=== PATIENT | female | born 2005 | race Caucasian/White ===

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

== ENCOUNTER 2023-06-11 12:32 | Emergency (ER) | payer OTHER, SELFPAY ==
[2023-06-11 12:44] VITALS: BP 129/80; PULSE 111; RESP 16; TEMP 37.3; O2SAT 98
--- NOTE | 2023-06-11 13:45 | ED.ABDPAIN ---
HPI - Abdominal Pain General Chief Complaint: Abdominal Pain Stated Complaint: Abdominal Pain Source: patient Mode of arrival: ambulatory Limitations: no limitations History of Present Illness HPI narrative: PATIENT PRESENTS FOR EVALUATION OF PELVIC PAIN FOR LAST 2 WEEKS, WORSE THE LAST FEW DAYS. PAIN IS INTERMITTENT, STABBING, OCCURRING SEVERAL TIMES DAILY IN LASTING MINUTES, IN THE SUPRAPUBIC REGION, AND DESCRIBED ?SEVERE?. NO NUMERICAL RATING THE PAIN. NO FEVER, CHILLS, NAUSEA, VOMITING, URINARY SYMPTOMS, VAGINAL BLEEDING OR DISCHARGE. STATES SHE MISSED A PERIOD WITH LAST MENSTRUAL PERIOD ENDING JUST OVER A MONTH AGO. SHE IS INTERMITTENTLY ADHERENT TO ORAL CONTRACEPTION. SHE IS SEXUALLY ACTIVE WITH 1 MALE PARTNER, SOMETIMES USING CONDOMS. HE IS NOT EXPERIENCING ANY SYMPTOMS. NO CHANGE IN HER BOWEL PATTERN. SHE IS NOT TAKING ANY MEDICATION FOR HER SYMPTOMS. Related Data Home Medications Medication Instructions Recorded Confirmed No Home Medications 07/11/22 07/11/22 Allergies Allergy/AdvReac Type Severity Reaction Status Date / Time No Known Allergies Allergy Verified 06/11/23 12:49 Review of Systems Review of Systems: CONSTITUTIONAL: DENIES FEVER, CHILLS, OR SWEATS. EYES: DENIES VISUAL CHANGES, REDNESS, OR DISCHARGE. ENT: DENIES RHINORRHEA, CONGESTION, SORE THROAT, OR OTALGIA. CARDIOVASCULAR: DENIES CHEST PAIN, PALPITATIONS, OR EDEMA. RESPIRATORY: DENIES COUGH OR DYSPNEA. GASTROINTESTINAL: REPORTS PELVIC PAIN. DENIES NAUSEA, VOMITING, OR DIARRHEA. GENITOURINARY: DENIES DYSURIA OR HEMATURIA. DENIES VAGINAL BLEEDING AND DISCHARGE. SKIN: DENIES RASH OR ITCHING. MUSCULOSKELETAL: DENIES BACK PAIN, JOINT PAIN, OR MYALGIA. NEUROLOGIC: DENIES HEADACHE, NUMBNESS, DIZZINESS, OR WEAKNESS. PSYCHIATRIC: DENIES ANXIETY OR DEPRESSION. [facility] Past Medical History Medical History ADD (attention deficit disorder) Surgical History Surgical History History of tonsillectomy Family History Family History Mother Family history non-contributory Social History Social History Smoking status: Current every day smoker Tobacco type: e-cigarettes/vaping Substance use: current Substance use type: marijuana Gender identity (if verbalized by the patient): Female Sexual Orientation (if Verbalized by the Patient): Straight or Heterosexual Spiritual care concerns: No Exam Narrative: GENERAL: WELL-APPEARING, WELL-NOURISHED, AND IN NO ACUTE DISTRESS. HEAD: NORMOCEPHALIC, ATRAUMATIC. EYES: PERRLA AND EOMI. ENT: NARES CLEAR, NO RHINORRHEA OR EPISTAXIS. MUCOUS MEMBRANES MOIST. OROPHARYNX WITHOUT TONSILLAR HYPERTROPHY EXUDATE OR OTHER LESIONS. BILATERAL TMS PEARLY PALM NONBULGING NECK: SUPPLE. NO ADENOPATHY OR MASSES. NO CAROTID BRUITS OR JVD CHEST: CLEAR TO AUSCULTATION. NO RESPIRATORY DISTRESS. NO WHEEZES RALES OR RHONCHI HEART: REGULAR RATE AND RHYTHM. NO MURMUR HEARD. NORMAL PERIPHERAL PULSES. ABDOMEN: SOFT, NONDISTENDED, NORMAL ACTIVE BOWEL SOUNDS. TENDERNESS IN THE SUPRAPUBIC REGION WITHOUT REBOUND OR GUARDING. EXTREMITIES: NORMAL RANGE OF MOTION. NO EDEMA. SKIN: WARM, DRY, NO RASH. NEURO: NO FOCAL DEFICITS. ALERT AND ORIENTED X3. PSYCH: NORMAL MOOD AND AFFECT. Course Course Emergency Course: THIS IS A 17-YEAR-OLD FEMALE WHO PRESENTED FOR EVALUATION OF PELVIC PAIN. URINALYSIS WITHOUT EVIDENCE OF INFECTION. TEST NEGATIVE. LIKELY WOULD BENEFIT FROM ULTRASOUND. CONTACTED [facility] AND SPOKE WITH CHARGE NURSE, JOSE, WHO INDICATES THAT DR. PUENTE WILL ACCEPT PT TO DEPARTMENT THERE. PT WAS UPDATED THROUGHOUT HER STAY AND WAS IN AGREEMENT WITH PLAN OF CARE INCLUDING PLANS FOR TRANSFER. SHE REQUESTED TO GO TO [facility]
== END 2023-06-11 13:35 | disposition short-term general hospital (02) ==
PROVIDERS: Emergency Provider Nurse Practitioner
DX: R10.2 Pelvic and perineal pain (principal); F17.290 Nicotine dependence, other tobacco product, uncomplicated
CPT/HCPCS: 81003; 81025; 99212; G0463

== ENCOUNTER 2023-09-06 08:50 | Emergency (ER) | payer OTHER, SELFPAY ==
[2023-09-06 08:57] VITALS: BP 133/81; PULSE 127; RESP 20; TEMP 37.4; O2SAT 99
--- NOTE | 2023-09-06 09:54 | ED.URI ---
HPI - URI/Sore Throat General Chief Complaint: Upper Respiratory Infection Stated Complaint: fever/congestion/throat/cough/aches Time Seen by Provider: 09/06/23 09:54 Source: patient, RN notes reviewed and old records reviewed Mode of arrival: ambulatory Limitations: no limitations History of Present Illness HPI Narrative: 17 year old female who presents to [facility] with complaints of fever, cough, headache, body aches, and head congestion since yesterday. Patient reports that she was sent home from work yesterday due to her symptoms. Patient reports fevers chills unsure how high temperature. She states that she has been taking DayQuil and Lashaun [place] cold and flu medication. MD elicited complaint: fever, sore throat and other (ear pain,body aches, headache) Pertinent past history: other (strep and ear infections) Onset (ago): day(s) (day 2 of symptoms) Severity: moderate Able to tolerate fluids by mouth: Yes Treatments prior to arrival: other (DayQuil, Lashaun [place] cold and flu) Related Data Allergies Allergy/AdvReac Type Severity Reaction Status Date / Time No Known Allergies Allergy Verified 06/11/23 12:49 Review of Systems Review of Systems: CONSTITUTIONAL: Reports malaise, chills, sweats, or fever. EYES: Denies visual changes, redness, or discharge. ENT: Reports rhinorrhea, congestion, sinus pain, right otalgia and sore throat. CARDIOVASCULAR: Denies chest pain, palpitations, or edema. RESPIRATORY: Reports cough.? Denies dyspnea. GASTROINTESTINAL: Denies abdominal pain, nausea, vomiting, diarrhea SKIN: Denies rash or itching. MUSCULOSKELETAL:reports myalgia. NEUROLOGIC: Reports headache. All systems reviewed & are unremarkable except as noted in HPI and below PMFSH Past Medical History Medical History (Updated 09/07/23 @ 12:39 by Neeta Licona NP) ADD (attention deficit disorder) Ear infection Strep throat Surgical History Surgical History History of tonsillectomy Family History Family History Mother Family history non-contributory Social History Social History Smoking status: Current every day smoker Tobacco type: e-cigarettes/vaping Substance use: current Substance use type: marijuana Gender identity (if verbalized by the patient): Female Sexual Orientation (if Verbalized by the Patient): Straight or Heterosexual Spiritual care concerns: No Comments At time of signature, agree with nursing past medical, surgical, social and family history. There is no relevant family history pertinent to the presenting complaint Exam Narrative: GENERAL: Well-appearing, well-nourished, and in no acute distress. HEAD: Normocephalic EYES: PERRLA, conjunctivae clear ENT: Nares clear, turbinates edematous and erythematous, clear discharge. Mucous membranes moist. Right TM red and bulging, Left TM pearly jack with dull light reflex; no tragal tenderness. Oropharynx erythematous without lesions. Tonsils not present and throat without exudate, no drooling, no hoarseness, no trismus, uvula midline.post nasal drainage noted NECK: Supple. lymphadenopathy CHEST: Clear to auscultation, breath sounds equal. No wheezing, rhonchi, rales, or stridor. No respiratory distress, speaks in full sentences.cough,SAO2 99% on room air HEART: Regular rate and rhythm. No murmur heard. SKIN: Warm, dry, no rash. NEURO: Alert and oriented x3. PSYCH: Normal mood and affect Course Course Emergency Course: Patient is aware of diagnosis, understands and agrees to treatment plan.? Anticipatory guidance given.? Patient agrees to follow-up as directed and is aware of reasons to seek care at the emergency department. Portions of this record may have been created with voice recognition software Level of Care: Express
== END 2023-09-06 10:14 | disposition home or self-care (01) ==
PROVIDERS: Emergency Provider Registered Nurse
DX: J02.0 Streptococcal pharyngitis (principal); H66.91 Otitis media, unspecified, right ear; Z20.822 Contact with and (suspected) exposure to COVID-19; F17.290 Nicotine dependence, other tobacco product, uncomplicated
CPT/HCPCS: 87426; 87804; 87880; 99213; G0463

== ENCOUNTER 2023-10-28 09:24 | Emergency (ER) | payer OTHER, SELFPAY ==
--- NOTE | 2023-10-28 09:31 | ED.NAVMDI ---
HPI - Nausea/Vomiting/Diarrhea General Chief complaint: Nausea/Vomiting/Diarrhea Stated complaint: Vomiting Time Seen by Provider: 10/28/23 09:42 Source: patient, RN notes reviewed and old records reviewed Mode of arrival: ambulatory Limitations: no limitations History of Present Illness HPI Narrative: 18 year old female who presents to [facility] care with complaints of nausea and vomiting since [id number] this morning. Patient reports that she has intermittent mid abdominal discomfort, denies any right lower abdomen pain, denies any urinary burning, urgency or frequency or any supra pubic or CVA tenderness. Patient reports no incidences of diarrhea, reports no fevers, chills or sweats. or any body aches, states some nausea. Patient reports no known ill contacts.Patient states she needs work note for today. MD elicited complaint: nausea and vomiting Onset (ago): hour(s) (this morning between [id number]) Description of vomiting: food contents and watery Associated abdominal pain: Yes Location of pain: other (mid abdominal intermittent) Pain consistency: colicky Treatment prior to arrival: none Related Data Allergies Allergy/AdvReac Type Severity Reaction Status Date / Time No Known Allergies Allergy Verified 06/11/23 12:49 Review of Systems Review of Systems: CONSTITUTIONAL: Denies fever, chills, or sweats. ENT: Denies rhinorrhea, congestion, sore throat, or otalgia. CARDIOVASCULAR: Denies chest pain, palpitations, or edema. RESPIRATORY: Denies cough or dyspnea. GASTROINTESTINAL: Reports occasional mid abdominal discomfort, nausea, vomiting,no diarrhea. GENITOURINARY: Denies dysuria or hematuria. SKIN: Denies rash or itching. MUSCULOSKELETAL: Denies back pain, joint pain, or myalgia. NEUROLOGIC: Denies headache, numbness, or weakness. All systems reviewed & are unremarkable except as noted in HPI and below PMFSH Past Medical History Medical History (Updated 10/29/23 @ 08:18 by Netea Licona NP) ADD (attention deficit disorder) Ear infection Strep throat Surgical History Surgical History History of tonsillectomy Family History Family History Mother Family history non-contributory Social History Social History Smoking status: Current every day smoker Tobacco type: e-cigarettes/vaping Substance use: current Substance use type: marijuana Gender identity (if verbalized by the patient): Female Sexual Orientation (if Verbalized by the Patient): Straight or Heterosexual Spiritual care concerns: No Comments At time of signature, agree with nursing past medical, surgical, social and family history. There is no relevant family history pertinent to the presenting complaint Exam Narrative: GENERAL: Well-appearing, well-nourished, and in no acute distress. HEAD: Normocephalic, atraumatic. EYES: PERRLA, conjunctivae clear, and EOMI. ENT: Nares clear. Mucous membranes moist. Oropharynx without edema, erythema, or lesions. Tonsils not enlarged and without exudate. NECK: Supple. No lymphadenopathy CHEST: Speaks in full sentences. No respiratory distress. HEART: Regular rate and rhythm. ABDOMEN: Soft, flat, nondistended. No guarding, rebound tenderness, or rigid. No pulsatilla masses. Bowel sounds present in all four quadrants. No organomegaly. Negative Freeman?s sign. No periumbilical tenderness.No McBurney point tenderness, No Supra public tenderness or distension. Good femoral pulses bilaterally. No hernia noted. No scars or surface trauma. SKIN: Warm, dry, no rash. NEURO:? Alert and oriented x3. PSYCH: Normal mood and affect Course Course Emergency Course: Patient is aware of diagnosis, understands and agrees to treatment plan.? Anticipatory guidance given.? Patient agrees to follow-up as directed and is aware o
[2023-10-28 09:35] VITALS: BP 125/68; PULSE 89; RESP 16; TEMP 37.1; O2SAT 100
== END 2023-10-28 10:03 | disposition home or self-care (01) ==
PROVIDERS: Emergency Provider Registered Nurse
DX: R11.2 Nausea with vomiting, unspecified (principal); F17.290 Nicotine dependence, other tobacco product, uncomplicated; F12.90 Cannabis use, unspecified, uncomplicated
CPT/HCPCS: 99213; G0463

== ENCOUNTER 2023-11-12 12:06 | Emergency (ER) | payer OTHER, SELFPAY ==
[2023-11-12 12:17] VITALS: BP 121/66; PULSE 89; RESP 16; TEMP 37.2; O2SAT 99
--- NOTE | 2023-11-12 12:27 | ED.URI ---
HPI - URI/Sore Throat General Chief Complaint: Upper Respiratory Infection Stated Complaint: Vomiting/Sore Throat/Headache Time Seen by Provider: 11/12/23 12:27 Source: patient, RN notes reviewed and old records reviewed Mode of arrival: ambulatory Limitations: no limitations History of Present Illness HPI Narrative: 18 year old female who presents to [facility] care with complaints of 3-4 days of sore throat, cough, congestion, headache and sore throat. She reports that she had nausea with vomiting X3 times this morning. She reports that she has been taking DayQuil and NyQuil for her symptoms and Ibuprofen. Patient reports that she felt feverish last night and coughed all night. MD elicited complaint: cough, sore throat and other (headache, nausea and vomiting today) Onset (ago): day(s) (3-4) Consistency: constant Pain scale (0-10): 5 Able to tolerate fluids by mouth: Yes Treatments prior to arrival: ibuprofen and other (DayQuil and NyQuil) Related Data Allergies Allergy/AdvReac Type Severity Reaction Status Date / Time No Known Allergies Allergy Verified 11/12/23 12:21 Review of Systems Review of Systems: CONSTITUTIONAL: Reports malaise, chills, sweats, has felt feverish EYES: Denies visual changes, redness, or discharge. ENT: Reports rhinorrhea, congestion, no sinus pain, no otalgia and positive for sore throat. CARDIOVASCULAR: Denies chest pain, palpitations, or edema. RESPIRATORY: Reports cough.? Denies dyspnea. GASTROINTESTINAL: Denies abdominal pain,positive for nausea, vomiting,no diarrhea SKIN: Denies rash or itching. MUSCULOSKELETAL: Denies myalgia. NEUROLOGIC: Reports headache. All systems reviewed & are unremarkable except as noted in HPI and below PMFSH Past Medical History Medical History (Updated 11/13/23 @ 14:52 by Neeta Licona NP) ADD (attention deficit disorder) Ear infection Strep throat Surgical History Surgical History History of tonsillectomy Family History Family History Mother Family history non-contributory Social History Social History Smoking status: Current every day smoker Tobacco type: e-cigarettes/vaping Substance use: current Substance use type: marijuana Gender identity (if verbalized by the patient): Female Sexual Orientation (if Verbalized by the Patient): Straight or Heterosexual Spiritual care concerns: No Comments At time of signature, agree with nursing past medical, surgical, social and family history. There is no relevant family history pertinent to the presenting complaint Exam Narrative: GENERAL: Well-appearing, well-nourished, and in no acute distress. HEAD: Normocephalic EYES: PERRLA, conjunctivae clear ENT: Nares clear, turbinates edematous and erythematous, clear discharge. Mucous membranes moist. TM pearly jack with dull light reflex bilaterally; no tragal tenderness. Oropharynx erythematous without lesions. Tonsils not present and throat without exudate, no drooling, no hoarseness, no trismus, uvula midline.post nasal drainage NECK: Supple. No lymphadenopathy CHEST: Clear to auscultation, breath sounds equal. No wheezing, rhonchi, rales, or stridor. No respiratory distress, speaks in full sentences.cough noted SAO2 99% on room air HEART: Regular rate and rhythm. No murmur heard. SKIN: Warm, dry, no rash. NEURO: Alert and oriented x3. PSYCH: Normal mood and affect Course Course Emergency Course: Patient is aware of diagnosis, understands and agrees to treatment plan.? Anticipatory guidance given.? Patient agrees to follow-up as directed and is aware of reasons to seek care at the emergency department. Portions of this record may have been created with voice recognition software Level of Care: Express Care Visit Vital Signs Vital si
== END 2023-11-12 12:47 | disposition home or self-care (01) ==
PROVIDERS: Emergency Provider Registered Nurse
DX: J06.9 Acute upper respiratory infection, unspecified (principal); R11.2 Nausea with vomiting, unspecified; J02.9 Acute pharyngitis, unspecified; F17.290 Nicotine dependence, other tobacco product, uncomplicated; F12.90 Cannabis use, unspecified, uncomplicated
CPT/HCPCS: 87081; 87880; 99213; G0463

== ENCOUNTER 2024-01-20 08:47 | Emergency (ER) | payer OTHER, SELFPAY ==
[2024-01-20 08:53] VITALS: BP 120/78; PULSE 90; RESP 16; TEMP 36.6; O2SAT 100
--- NOTE | 2024-01-20 09:31 | ED.URI ---
HPI - URI/Sore Throat General Chief Complaint: Upper Respiratory Infection Stated Complaint: throat/ear Time Seen by Provider: 01/20/24 09:31 Source: patient, RN notes reviewed and old records reviewed Mode of arrival: ambulatory Limitations: no limitations History of Present Illness HPI Narrative: 18-year-old female to Express Care for complaint of right ear pain and sore throat for 5 days. Patient has attempted to treat at home with ibuprofen with little relief. Patient endorses tonsillectomy as a child. Patient denies shortness of breath, headache, Fever, chest pain, GI complaints. Patient able to tolerate fluids by mouth. Respirations even and nonlabored. Patient able to speak in full sentences without difficulty. Patient in no acute distress. Related Data Allergies Allergy/AdvReac Type Severity Reaction Status Date / Time No Known Allergies Allergy Verified 11/12/23 12:21 Review of Systems Review of Systems: All systems reviewed & are unremarkable except as noted in HPI and below Constitutional: Constitutional: Reports no additional constitutional complaints Eyes: Eyes: Reports no additional eye complaints ENT: Reports as per HPI, Reports otalgia ( right) and Reports sore throat Cardiovascular: Cardiovascular: Reports no additional cardiovascular complaints, Denies chest pain and Denies dyspnea Respiratory: Respiratory: Reports no additional respiratory complaints, Denies cough and Denies dyspnea Musculoskeletal: Musculoskeletal: Reports no additional musculoskeletal complaints Neurologic: Reports system reviewed and no additional complaints, except as documented Psychiatric: Psychiatric: Reports no additional psychiatric complaints [facility] Past Medical History Medical History ADD (attention deficit disorder) Ear infection Strep throat Surgical History Surgical History History of tonsillectomy Family History Family History Mother Family history non-contributory Social History Social History Smoking status: Current every day smoker Tobacco type: e-cigarettes/vaping Substance use: current Substance use type: marijuana Gender identity (if verbalized by the patient): Female Sexual Orientation (if Verbalized by the Patient): Straight or Heterosexual Spiritual care concerns: No Comments At the time of my signature, I reviewed and agree with the nursing past medical, surgical, social, and family history. There is no relevant family history pertinent to the patient complaint. Exam Const: General: cooperative, healthy appearing, no acute distress, alert, tired appearing and well nourished Nutritional Appearance: well nourished Orientation/consciousness: patient oriented x3 Limitations: no limitations HENMT: Head: normal to inspection Ears: external ears normal and TM abnormal erythematous on the right, with fluid behind the TM on the right and with loss of landmarks on the right Face/Nose/Sinus: Normal external nose present, Normal nares present, normal facial exam, No erythema and No edema Face and sinus: normal facial exam, no erythema and no edema Mouth: Yes Normal oral and palatal mucosa present Throat: posterior oropharynx abnormal erythema Eyes: General: appearance normal, both eyes and all related structures Neck: Neck: normal visual inspection, full ROM and no meningeal signs Lymphatic: no lymphadenopathy noted and no lymphedema noted Chest: Chest palpation & inspection: normal inspection of the chest Resp: Effort & Inspection: normal respiratory effort and able to speak in complete sentences Auscultation: clear to auscultation bilaterally Cardio: Jugular venous distension: no JVD Rate: regular rate Rhythm: regular rhythm Back/Spi
== END 2024-01-20 09:50 | disposition home or self-care (01) ==
PROVIDERS: Emergency Provider Nurse Practitioner Family
DX: H66.91 Otitis media, unspecified, right ear (principal); F17.290 Nicotine dependence, other tobacco product, uncomplicated; F12.90 Cannabis use, unspecified, uncomplicated
CPT/HCPCS: 99213; G0463

== ENCOUNTER 2024-01-30 13:52 | Emergency (ER) | payer OTHER, SELFPAY ==
[2024-01-30 13:56] VITALS: BP 122/75; PULSE 99; RESP 16; TEMP 37.2; O2SAT 97
--- NOTE | 2024-01-30 18:03 | ED.URI ---
HPI - URI/Sore Throat General Chief Complaint: Upper Respiratory Infection Stated Complaint: nose/throat/head/fever Time Seen by Provider: 01/30/24 14:05 Source: patient and RN notes reviewed Mode of arrival: ambulatory Limitations: no limitations History of Present Illness HPI Narrative: Patient presents today complaining of a 2 week history of sore throat, headache, rhinorrhea, subjective fever, right ear pain. Patient has also vomited during this time. Symptoms have worsened over the past week. Patient was seen at [facility] 10 days ago and diagnosed with otitis media and placed on amoxicillin. Instead taking the prescribed pills twice daily she was taking the once a day. She was also taking ibuprofen, Tylenol, Claritin with some mild relief. Currently rates her pain 12/29. Related Data Allergies Allergy/AdvReac Type Severity Reaction Status Date / Time No Known Allergies Allergy Verified 11/12/23 12:21 Review of Systems Review of Systems: CONSTITUTIONAL: Denies body aches, chills, or sweats.+ subjective fever EYES: Denies visual changes, redness, or discharge. ENT: Denies congestion. + sore throat, right ear pain or rhinorrhea CARDIOVASCULAR: Denies chest pain, palpitations, or edema. RESPIRATORY: Denies cough or dyspnea. GASTROINTESTINAL: Denies abdominal pain, or diarrhea.+ vomiting, nausea GENITOURINARY: Denies dysuria or hematuria. SKIN: Denies rash, itching, or wounds. MUSCULOSKELETAL: Denies back pain, joint pain, or myalgia. NEUROLOGIC: Denies numbness, tingling, or weakness.+ headache PSYCH: Denies depression or anxiety. [facility] Past Medical History Medical History ADD (attention deficit disorder) Ear infection Strep throat Surgical History Surgical History History of tonsillectomy Family History Family History Mother Family history non-contributory Social History Social History Smoking status: Current every day smoker Tobacco type: e-cigarettes/vaping Substance use: current Substance use type: marijuana Gender identity (if verbalized by the patient): Female Sexual Orientation (if Verbalized by the Patient): Straight or Heterosexual Spiritual care concerns: No Comments Reviewed Exam Narrative: GENERAL: Mildly ill-appearing, well-nourished, and in no acute distress. HEAD: Normocephalic, atraumatic. EYES: EOMI. No redness or drainage. Conjunctivae normal. ENT: Mucous membranes pink and moist. Nares clear. No rhinorrhea. TMs normal bilaterally. Throat mildly erythematous without edema or exudate. Uvula midline. NECK: Normal AROM. Supple. No lymphadenopathy. CHEST: No respiratory distress. Clear to auscultation. HEART: Regular rate and rhythm. No murmur appreciated. EXTREMITIES: Normal range of motion. No edema. SKIN: Warm, dry, no rash. Capillary refill normal. Normal skin turgor. NEURO: No focal deficits. Alert and oriented x3. Gait steady. PSYCH: Normal affect. No signs of depression or anxiety. Course Course Level of Care: Express Care Visit Vital Signs Vital signs: Vital Signs Temperature 98.9 F 01/30/24 13:56 Pulse Rate 99 01/30/24 13:56 Respiratory Rate 16 01/30/24 13:56 Blood Pressure 122/75 01/30/24 13:56 Pulse Oximetry 97 01/30/24 13:56 Oxygen Delivery Room Air 01/30/24 13:56 Temperature 98.9 F 01/30/24 13:56 Pulse Rate 99 01/30/24 13:56 Respiratory Rate 16 01/30/24 13:56 Blood Pressure 122/75 01/30/24 13:56 Pulse Oximetry 97 01/30/24 13:56 Oxygen Delivery Room Air 01/30/24 13:56 Reviewed MDM - URI/Sore Throat MDM Narrative Medical decision making narrative: Rapid strep positive. Prescription for Augmentin sent to pharmacy for strep throat along
== END 2024-01-30 14:35 | disposition home or self-care (01) ==
PROVIDERS: Emergency Provider Nurse Practitioner
DX: J02.0 Streptococcal pharyngitis (principal); F17.290 Nicotine dependence, other tobacco product, uncomplicated; F12.90 Cannabis use, unspecified, uncomplicated
CPT/HCPCS: 87880; 99213; G0463

== ENCOUNTER 2024-10-02 08:02 | Emergency (ER) | payer SELFPAY ==
[2024-10-02 08:08] VITALS: BP 128/63; PULSE 90; RESP 20; TEMP 36.7; O2SAT 100
--- NOTE | 2024-10-02 08:10 | ED.FEMALEGU ---
HPI - Female Genitourinary General Chief complaint: Urogenital-Female Stated complaint: burning sensation in and around vagina Time Seen by Provider: 10/02/24 08:20 Source: patient and RN notes reviewed Mode of arrival: ambulatory Limitations: no limitations History of Present Illness HPI Narrative: 18-year-old female presents with concern for burning with urination, vaginal pressure for 2 weeks. She reports symptoms improved when she was on her period and she was taking [id number] UTI supplements. She reports they came back when her period stopped. She denies fever, body aches, chills, sweats. She denies nausea, vomiting, back pain, abdominal pain. She does report some vaginal itching and a small amount of white vaginal discharge. She denies concern for STDs. MD elicited complaint: UTI Related Data Allergies Allergy/AdvReac Type Severity Reaction Status Date / Time No Known Allergies Allergy Verified 10/02/24 08:12 Review of Systems Review of Systems: CONSTITUTIONAL: Denies malaise, chills, sweats, or fever. CARDIOVASCULAR: Denies chest pain, palpitations, or edema. RESPIRATORY: Denies cough or dyspnea. GASTROINTESTINAL: Denies abdominal pain, nausea, vomiting, diarrhea GENITOURINARY: Reports dysuria, vaginal itching, white discharge, suprapubic pressure. Denies flank pain or hematuria. SKIN: Denies rash or itching. MUSCULOSKELETAL: Denies back pain or myalgia. All systems reviewed & are unremarkable except as noted in HPI and below PMFSH Past Medical History Medical History ADD (attention deficit disorder) Ear infection Strep throat Surgical History Surgical History History of tonsillectomy Family History Family History Mother Family history non-contributory Social History Social History Smoking status: Current every day smoker Tobacco type: e-cigarettes/vaping Substance use: current Substance use type: marijuana Gender identity (if verbalized by the patient): Female Sexual Orientation (if Verbalized by the Patient): Straight or Heterosexual Spiritual care concerns: No Comments At time of signature, agree with nursing past medical, surgical, social and family history. There is no relevant family history pertinent to the presenting complaint Exam Narrative: GENERAL: Well-appearing, well-nourished, and in no acute distress. HEAD: Normocephalic. EYES: PERRLA, conjunctivae clear. NECK: Supple. No lymphadenopathy CHEST: Clear to auscultation. No respiratory distress. HEART: Regular rate and rhythm. ABDOMEN: Soft, nontender upon palpation, nondistended, normal active bowel sounds, no palpable or pulsatile masses, no guarding. No CVA tenderness SKIN: Warm, dry, no rash. NEURO: Alert and oriented x3. PSYCH: Normal mood and affect Course Course Emergency Course: Patient is aware of diagnosis, understands and agrees to treatment plan. Anticipatory guidance given. Patient agrees to follow-up as directed and is aware of reasons to seek care at the emergency department. Portions of this record may have been created with voice recognition software Level of Care: Express Care Visit Vital Signs Vital signs: Reviewed. MDM - Female Genitourinary MDM Narrative Medical decision making narrative: Exam findings and UA show no acute concerns or changes; patient is non-toxic appearing and is in no distress. Patient is appropriate for outpatient treatment and follow-up. Differential Diagnosis Differential diagnosis: Likely urinary tract infection and cystitis Critical Care Time Critical Care Time Critical Care Time: No Discharge Plan Discharge Clinical Impression: Urinary tract infection, Vaginal itching Patient Disposition: Home, Self-Care Condition: Stable Instructions: Antibiotic Form, Urinary Tract Infection in Women (ED) Additional Instructions: We will send a urine culture to the lab; if the culture identifies an organism that the prescribed antibiotic will not treat, you will receive a phone call from an urgent care staff member and an appropriate antibiotic will be prescribed. -Your symptoms should begin to improve within a day of starting antibiotics. But you should finish all the antibiotic pills you get. Otherwise your infection might come back. -Also recommend: increase water intake. Tylenol/ibuprofen as needed for pain or fever -Follow-up with your primary care provider for urine recheck or seek ER visit if condition worsens with high fever, nausea, vomiting and severe back pain. Patient Language: Mongolian Prescriptions: New fluconazole 150 mg tablet 150 mg PO Q48H 3 Days Qty: 2 0RF Rx Instructions: take one dose now, and a second dose if symptoms remain in 48 hours sulfamethoxazole-trimethoprim 800-160 mg tablet 1 tablet PO Q12H 7 Days Qty: 14 0RF Follow-up/Referrals: PHYSICIAN,[facility] [Primary Care Provider] - Stand Alone Forms: Work/School Release IP Time of Disposition: 08:29
--- OUTSIDE RECORDS SUMMARY | 2024-10-02 08:14 | XMS_ITS | Referral Summary ---
Author Organization [facility] Address [address] [place] [address] Care Team Providers Care Nailer Operator Name Role Phone No, Physician Primary Care Provider [phone] Allergies Active Allergy Reactions Criticality Noted Date Comments Cider Vinegar Swelling Medium 11/22/2022 Medications escitalopram (LEXAPRO) 10 mg tablet Take 1 tablet (10 mg total) by mouth nightly 11/01/2022 Active naproxen (NAPROSYN) 500 mg tablet Take 1 tablet (500 mg total) by mouth 2 (two) times a day as needed for pain Take with food. 30 tablet 06/11/2023 Active Active Problems Problem Noted Date Diagnosed Date Acute anterior epistaxis 10/27/2021 Anxiety 04/03/2021 Assessment & Plan (04/03/2021 9:37 AM CDT): Trial of Atarax (hydroxyzine), antihistamine to have in case anxiety/panic attacks are not controllable with usual measures Make sure to get back into regular follow-up with a counselor soon as possible Plan to see back in 2-3 months to see how things are going again Hx of epistaxis 02/12/2021 Immunizations Immunization Administration Dates Next Due DTaP 04/19/2009, 5,04/27/2004,03/01,2003 DTaP / HiB / IPV 04/19/2009 HPV, Quadrivalent 05/25/2015,05/25/2015,03/25/20 15 HPV, Unspecified 03/25/2015 HPV9 09/29/2015,09/29/2015 Hep A, Ped Unspecified 04/19/2009 Hep A, Pediatric 04/19/2009,12/25/2005, 6 Hep B, Adolescent or Pediatric 4,04/27/2004,2003,12/21,2003,2003 HiB 11/01/2004, 4,03/01/2004,12/21 IPV 04/19/2009, 5,01/23/2005,04/27,03/01/2004,03/01/2004,2003 ,2003 Influenza, Live, Intranasal, Quadrivalent 05/25/2015 Influenza, Quadrivalent, Spl it, Intramuscular 05/07/2017 Influenza, Quadrivalent, Spl it, Preservative Free, Intramuscular 09/17/2018,04/04/2016 Influenza, Split 04/29/2009,07/03/2006 Influenza, Trivalent, Preser vative Free, Intramuscular 06/01/2013,05/08/2011 MMR 04/19/2009, 9,01/23/2005,01/23 Meningococcal MCV4P (Menactra) 03/25/2015,2014 Pneumococcal Conjugate 7-Valent 11/02/19 05,11/01/2004,04/27/2004,04/27,03/01/2004,03/01/2004,2003 ,2003 Tdap 03/03/2018,03/25/2015,03/25/2015 Varicella 04/19/2009, 9,11/01/2004,11/01 Social History Tobacco Use Types Packs/Day Years Used Date Smoking Tobacco: Never Smokeless Tobacco: Never PHQ-2 Answer Date Recorded PHQ-2 Total Score (If total score is 3 or more points, staff should administer the PHQ-9) 0 03/29/2021 Personal Safety Answer Date Recorded Have you ever been in or are you currently in a harmful physical or emotional relationship or is someone making you feel afraid or unsafe? Denies 12/23/2023 Comments No Sex and Gender Information Value Date Recorded Sex Assigned at Not on file Legal Sex Female 9:05 AM BILL HIKER Gender Identity Not on file Sexual Orientation Not on file Last Filed Vital Signs Vital Sign Reading Time Taken Comments Blood Pressure 107/66 12/23/2023 9:54 PM CDT Pulse 85 12/23/2023 9:54 PM CDT Temperature 36.5 C (97.7 F) 12/23/2023 6:25 PM CDT Respiratory Rate 16 12/23/2023 9:54 PM CDT Oxygen Saturation 100% 12/23/2023 9:54 PM CDT Inhaled Oxygen Concentration - - Weight 72.6 kg (160 lb) 12/23/2023 6:25 PM CDT Height 165.1 cm (5' 5 ) 01/16/2023 2:18 PM CDT Body Mass Index 26.63 01/16/2023 2:18 PM CDT Plan of Treatment Not on file Insurance [facility] Advance Directives For more information, please contact: [phone] Documents on File Type Date Recorded Patient Gravity Prospecting Supervisor Expl anation ADVANCE DIRECTIVE 02/07/2021 2:19 PM Care Teams Nailer Operator Relationship Specialty Start Date End Date No, Physician PCP - General 12/23/23
--- OUTSIDE RECORDS SUMMARY | 2024-10-02 08:14 | XMS_ITS | Encounter Summary ---
Author Organization [facility] Address [address] [place] [address] Phone Care Team Providers Care Paint Formulator Name Role Phone No, Physician Primary Care Provider Hayley Fagan NP Primary Care Provider No, Physician Primary Care Provider Niko Hook MD Primary Care Provider No, Physician Primary Care Provider [phone] Encounter Details Date Type Department Care Team (Late st Contact Info) Description 10/18/2017 Orders Only [facility] ProviderSameera MD [address] [place] [address] Social History Tobacco Use Types Packs/Day Years Used Date Smoking Tobacco: Never Assessed Comments Unknown Sex and Gender Information Value Date Recorded Sex Assigned at Not on file Legal Sex Female 9:05 AM PERMIT SPECIALIST Gender Identity Not on file Sexual Orientation Not on file documented as of this encounter Plan of Treatment Not on file documented as of this encounter Procedures Procedure Name Priority Date/Time Associated Diagnosis Comments DISCHARGE LABORATORY CUMULATIVE REPORT 10/18/2017 12:00 AM CDT documented in this encounter Results * DISCHARGE LABORATORY CUMULATIVE REPORT (10/18/2017 12:00 AM CDT) Narrative 10/18/2017 12:00 AM CDT Ordered by an unspecified provider. Historical Provider LAB BLOOD ORDERABLES Liberty l Result documented in this encounter Visit Diagnoses Not on filedocumented in this encounter Additional Health Concerns Infection Onset Date Last Indicated Resolved Time COVID: Suspected 11/06/2021 11/06/2021 11/06/2021 3:53 PM CDT COVID: Suspected 11/06/2021 11/06/2021 11/06/2021 9:17 PM CDT documented as of this encounter Care Teams Paint Formulator Relationship Specialty Start Date End Date No, Physician PCP - General 06/03/17 04/27/18 Hayley Fagan NP PCP - General 04/28/18 12/14/20 No, Physician PCP - General 12/15/20 02/06/21 Niko Hook MD PCP - General Family Medicine 02/07/21 12/22/23 No, Physician PCP - General 12/23/23 documented as of this encounter
--- OUTSIDE RECORDS SUMMARY | 2024-10-02 08:14 | XMS_ITS | Clinical Summary ---
Author Organization [facility] Address [address] [place] [address] Phone Care Team Providers Care Staff Antisubmarine Officer Name Role Phone Provider, None Primary Care Provider Unavailabl e Allergies No known active allergies Medications ondansetron (ZOFRAN) 4 MG Tablet Take 1-2 Tablets by mouth every 8 hours as needed for Nausea - 1st line. 10 Tablet 06/22/2023 Active Social History Tobacco Use Types Packs/Day Years Used Date Smoking Tobacco: Never Assessed Comments Unknown Sex and Gender Information Value Date Recorded Sex Assigned at Female 06/22/2023 1:24 AM SUPERANNUATION FUNDS MANAGER Legal Sex Female 11:58 PM CDT Gender Identity Female 06/22/2023 1:24 AM SUPERANNUATION FUNDS MANAGER Sexual Orientation Not on file Last Filed Vital Signs Vital Sign Reading Time Taken Comments Blood Pressure 116/71 06/22/2023 2:15 AM SUPERANNUATION FUNDS MANAGER Pulse 81 06/22/2023 2:20 AM SUPERANNUATION FUNDS MANAGER Temperature 36.2 C (97.2 F) 06/22/2023 1:13 AM SUPERANNUATION FUNDS MANAGER Respiratory Rate 16 06/22/2023 1:13 AM SUPERANNUATION FUNDS MANAGER Oxygen Saturation 100% 06/22/2023 2:20 AM SUPERANNUATION FUNDS MANAGER Inhaled Oxygen Concentration - - Weight 80.7 kg (178 lb) 06/22/2023 1:13 AM SUPERANNUATION FUNDS MANAGER Height 157.5 cm (5' 2 ) 06/22/2023 1:13 AM SUPERANNUATION FUNDS MANAGER Body Mass Index 32.56 06/22/2023 1:13 AM SUPERANNUATION FUNDS MANAGER Plan of Treatment Not on file Insurance MEDICAID [facility] Care Teams Staff Antisubmarine Officer Relationship Specialty Start Date End Date Provider, None PA PCP - General 06/22/23
--- OUTSIDE RECORDS SUMMARY | 2024-10-02 08:14 | XMS_ITS | Clinical Summary ---
Author Organization [facility] Address [address] [place] [address] Care Team Providers Care Professor Of History Name Role Phone No, Physician Primary Care Provider [phone] Allergies Active Allergy Reactions Criticality Noted Date [...] 05,11/01/2004,04/27/2004,04/27,03/01/2004,03/01/2004,2003 ,2003 Tdap 03/03/2018,03/25/2015,03/25/2015 Varicella 04/19/2009, 9,11/01/2004,11/01 Surgical History Surgery Date Site/Laterality Comments TONSILLECTOMY 07/22/2007 - 07/21/2008 Social History Tobacco Use Types Packs/Day Years [...] on file Legal Sex Female 9:05 AM 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 Gender Identity Not on file Sexual Orientation Not on file Obstetrics History Last Filed Vital Signs Vital Sign Reading [...] 01/16/2023 2:18 PM CDT Plan of Treatment Health Maintenance Due Date Last Done Comments Hepatitis C Screening 2003 Regular Well Visit/Exam 18-64 10/19/2021 Depression Screening 03/29/2022 03/29/2021, 02/08/20 21 Influenza Vaccine (#1) 2024 9, 05/07/2017, 04/04/2016, Additional history exists DTaP/Tdap/Td Vaccine (9 - Td or Tdap) 03/03/2028 03/03/2018, 03/25/2015, 03/25/2015, Additional history exists Hepatitis B Screening Completed 04/27/2004 , 04/27/2004, 2003, Additional history exists Pneumococcal vaccine <65 Completed 005, 11/01/2004, 04/27/2004, Additional history exists Varicella Vaccines Completed 04/19/2009, 0 04/19/2009, 11/01/2004, Additional history exists HPV Vaccines Completed 09/29/2015, 09/19, 05/25/2015, Additional history exists Meningococcal Vaccine Completed 02/14/2021 , 03/25/2015, 03/25/2015 Meningococcal B Vaccine Completed 04/04/2021, 02/14 [place] [facility] [place] Advance Directives For more information, please contact: [phone] Documents on File Type Date Recorded Patient Fire Lookout Expl anation ADVANCE DIRECTIVE 02/07/2021 2:19 PM Care Teams Professor Of History Relationship Specialty Start Date End Date No, Physician PCP - General 12/23/23
[2024-10-02 08:19] LABS: EDUAAPPEAR Clear; EDUABILI Negative (Negative); EDUABLOOD Trace (Negative); EDUACOLOR1 Yellow; EDUAGLUCOSE Negative (Negative); EDUAKETONE Negative (Negative); EDUALEUKO 2+ (Negative); EDUANITRATE Negative (Negative); EDUAPH 6.5; EDUAPROTEIN Negative (Negative); EDUASPGRAVITY 1.025; EDUAUROBILI 0.2
== END 2024-10-02 08:35 | disposition home or self-care (01) ==
PROVIDERS: Emergency Provider Nurse Practitioner
DX: N39.0 Urinary tract infection, site not specified (principal); N89.8 Other specified noninflammatory disorders of vagina; F17.290 Nicotine dependence, other tobacco product, uncomplicated; F12.90 Cannabis use, unspecified, uncomplicated
CPT/HCPCS: 81003; 87086; 99213; G0463

== ENCOUNTER 2024-11-02 15:03 | Emergency (ER) | payer SELFPAY ==
[2024-11-02 15:18] VITALS: BP 140/90; PULSE 89; RESP 20; TEMP 36.7; O2SAT 99
[2024-11-02 15:42] LABS: EDCOVIDSCREEN Negative (Negative); EDINFLUASCREEN Negative (Negative); EDINFLUBSCREEN Negative (Negative); EDSTREPNEGPOS1 Negative (Negative)
--- NOTE | 2024-11-02 15:48 | ED.URI ---
HPI - URI/Sore Throat General Chief Complaint: Upper Respiratory Infection Stated Complaint: Vomiting/Sore Throat/Dizziness Time Seen by Provider: 11/02/24 15:48 Source: patient Mode of arrival: ambulatory Limitations: no limitations History of Present Illness HPI Narrative: 19-year-old female presents with complaint of nasal congestion, sore throat, cough, fatigue, body aches, headaches for 2 days. Afebrile. Taking uehu-fea-nxrhnyv Mucinex with little relief of symptoms. Denies nausea vomiting diarrhea. All systems reviewed and negative except as noted above. Related Data Allergies Allergy/AdvReac Type Severity Reaction Status Date / Time No Known Allergies Allergy Verified 11/02/24 15:23 Review of Systems Review of Systems: CONSTITUTIONAL: Denies fever, chills, or sweats. reports fatigue EYES: Denies visual changes, redness, or discharge. ENT: Reports rhinorrhea, congestion, sore throat. Denies otalgia. CARDIOVASCULAR: Denies chest pain, palpitations, or edema. RESPIRATORY: . Reports cough. Denies dyspnea. GASTROINTESTINAL: Denies abdominal pain, nausea, vomiting, or diarrhea. GENITOURINARY: Denies dysuria or hematuria. SKIN: Denies rash or itching. MUSCULOSKELETAL: Denies back pain, joint pain, or myalgia. NEUROLOGIC: Denies headache, numbness, or weakness. PSYCHIATRIC: Denies anxiety or depression. All other systems reviewed are negative, except as documented in HPI. [facility] Past Medical History Medical History ADD (attention deficit disorder) Ear infection Strep throat Surgical History Surgical History History of tonsillectomy Family History Family History Mother Family history non-contributory Social History Social History Smoking status: Current every day smoker Tobacco type: e-cigarettes/vaping Substance use: current Substance use type: marijuana Gender identity (if verbalized by the patient): Female Sexual Orientation (if Verbalized by the Patient): Straight or Heterosexual Spiritual care concerns: No Comments At time of signature, agree with nursing past medical, surgical, social and family history. There is no relevant family history pertinent to the presenting complaint. Exam Narrative: GENERAL: This is a well-nourished, well-developed patient, in no apparent distress. HEAD: normocephalic, atraumatic. EYES: PERRL. Sclera clear/white. Vision is grossly intact. EARS: External ears normal, auditory canals clear and without drainage, TMs normal without perforation. Hearing grossly intact. NOSE: External nose normal with nasal congestion, clear nasal drainage, erythema swelling to bilateral nares THROAT: Mucous membranes moist, posterior pharynx clear. NECK: Neck supple, non-tender without lymphadenopathy, masses or thyromegaly. CARDIOVASCULAR: Regular rate and rhythm without murmurs, gallops, or rubs. RESPIRATORY: Clear to auscultation. Breath sounds equal bilaterally. No wheezes, rales, or rhonchi. SKIN: warm, Dry, intact with no suspicious lesions or rash, good texture and turgor. NEURO: awake, alert, and oriented to person, place and time. There were no obvious focal neurologic abnormalities. EXTREMITIES: No joint tenderness, effusion, or edema noted. Course Course Level of Care: Express Care Visit Vital Signs Vital signs: Vital Signs Temperature 36.7 C 11/02/24 15:18 Pulse Rate 89 11/02/24 15:18 Respiratory Rate 20 11/02/24 15:18 Blood Pressure 140/90 11/02/24 15:18 Pulse Oximetry 99 11/02/24 15:18 Oxygen Delivery Room Air 11/02/24 15:18 Temperature 36.7 C 11/02/24 15:18 Pulse Rate 89 11/02/24 15:18 Respiratory Rate 20 11/02/24 15:18 Blood Pressure 140/90 11/02/24 15:18 Pulse Oximetry 99 11/02/24 15:18 Oxygen Delivery Room Air 11/02/24 15:18 reviewed MDM - URI/Sore Throat MDM Narrative Medical decision making narrative: negative COVID, influenza and strep. Strep culture ordered. Patient is well-appearing, nontoxic lungs clear to auscultation. Recommend ihcu-trn-ovsnlvm medications to treat viral symptoms. Please be advised this is a medical document. It is intended for ejma-li-fkug communication. It is written in medical language and may contain unfamiliar abbreviations or verbiage. Medical documents are intended to carry relevant information, facts as evident, and the clinical opinion of the practitioner at the time of the encounter. This report may have been done utilizing a voice recognition system. Attempts have been made to correct errors. However, there may be uncorrected grammatical, spelling, and recognition errors present. The file time of this note does not necessarily represent the time of service. Lab Data Labs: Lab Results 11/02/24 Range/Units 15:24 POC Influenza A Ag Negative (Negative) POC Influenza B Ag Negative (Negative) POC SARS CoV-2 Ag Negative (Negative) POC Grp A Strep Screen Negative (Negative) Discharge Plan Discharge Clinical Impression: Viral upper respiratory tract infection with cough Patient Disposition: Home Condition: Stable Instructions: Upper Respiratory Infection (ED) Additional Instructions: your COVID, influenza and strep test was negative today. Your symptoms are viral and may last 10-14 days. Take medications as prescribed. Drink at least 64 oz of water a day. Place cool mist humidifier in bedroom where you sleep. Follow-up with your doctor if symptoms are not improving. Patient Language: Greek Prescriptions: New benzonatate 200 mg capsule 200 mg PO TID PRN (Reason: cough) Qty: 20 0RF methylprednisolone [Medrol (Jayant)] 4 mg tablets,dose pack See Rx Instructions PO .COMPLEX Qty: 21 0RF Rx Instructions: orally per package directions fluticasone propionate [Flonase Allergy Relief] 50 mcg/actuation spray,suspension 1 spray intranasal BID Qty: 16 0RF Rx Instructions: administer into each nostril Claritin-D 12 Hour 5-120 mg tablet extended release 12 hr 1 tablet PO Q12H PRN (Reason: nasal congestion) Qty: 20 0RF Follow-up/Referrals: PHYSICIAN,COUNTER DISH CARRIER [Primary Care Provider] - Stand Alone Forms: Work/School Release IP Time of Disposition: 15:50
--- OUTSIDE RECORDS SUMMARY | 2024-11-02 16:51 | XMS_ITS | Continuity of Care Document ---
Author Organization [facility] Address [address] [place] [address] Phone Care Team Providers Care Diet Technician Registered Name Role Phone Stanley Faith Unavailable Unavailable Allergies, Adverse Reactions, Alerts Substance Reaction Status Criticality acetic acid Active No Information Procedures Procedure Date PSYTX PT&/FAMILY 30 MINUTES PREV VISIT, NEW, AGE 12-17 Advance Directives Directive Yes / No Effective Date File Name No Information Encounters Encounter Description Practice Location Reason(s) For Visit Diagnoses Date Provider Providers Copied on Encounter [facility], [address] [place] [address], Critical access hospital, tel:[phone] *William Esparz[facility] Primary [facility] No Information 8 Vianney Angel. [address] [place] [address], [address] [place] [address]. tel:[phone] [facility], [address] [place] [address], [address] [place] [address] tel:[phone] *[facility] [place][Note 2] No Information 8 Raghavendra Rangel. [address] [place] [address], [address] [place] [address]. tel:[phone] PSYTX PT&/FAMILY [address], Critical access hospital, tel:[phone] *[facility] [place][Note 2] Major depressive disorder, recurrent severe without psychotic features 8 Raghav Marinelli. [address] [place], Critical access hospital, . tel:[phone] PREV VISIT, NEW, AGE 12-17 [facility], [address] [place], [address], [place] tel:[phone] *[facility] [place][Note 2] Skin lesion (chief complaint) Well Child (chief complaint) Dietary counseling and surveillanceEncntr for routine child health exam w/o abnormal findingsOther depressionErythemaI nsect bite, initial encounter 8 Raghavendra Rangel. [address] [place], [address], [place]. tel:[phone] Family History Family Member Type Diagnosis Age [...] Provider Varicella administered Source: Other P rovider EDlO-Ayh-TWV administered Source: Other P rovider MMR administered [...] Order: Lab Order CBC w/AU TO DIFF ([id number]), Sent on: Sent Future Order: Lab Order COMPREHE NSIVE METABOLIC PANEL ([id number]), Sent on: Sent Future Order: Lab Order THYROID STIMULATING HORMONE ([id number]), Sent on: Sent Future Order: Lab Order URINALYS IS W/ MIRCOSCOPIC ([id number]), Sent on: Sent Future Order: Lab Order LIPID PA TOSHIA ([id number]), Sent on: Sent History Of Present Illness Encounter Date Complaint History Of Prese nt Illness Well Child Skin lesion The patient pres ents with [...] bleeding lesions, scaly skin or skin irritation. Functional Status Date Functional Assessmen t No [...] response to allergan/irritant. May need referal to auto technician mechanic or ice cream shop associate if no improvement. Related to Insect bite, initial encounter Continue well children's service supervisor. Avoid cigarette smoke in the home and vehicles. Ensure pets have been vaccinated for rabies. Safeguard the home for falls and poisons. Finger foods as tolerated. if rx for tylenol was sent to pharmacy, advised window glazier to administer tylenol after vaccination and not [...] year. decrease portion size, decrease carbohydrates. download [employer] to smart phone and log foods. start by decreasing caloric intake by 10% for the first month and gradually decrease. Do not go below 1200 calories per day. Related to Dietary counseling and surveillance appt with Isis Avilez PANTRY ATTENDANT Relat ed to Other depression Dietary management e ducation, guidance, and counseling Related to Dietary counseling and surveillance Assessments Type Assessment Date No Information Patient Care Teams Name Effective Dates (start - stop) Status Members No Information
--- OUTSIDE RECORDS SUMMARY | 2024-11-02 16:51 | XMS_ITS | Encounter Summary ---
Author Organization [facility] Address [address] [place] [address] Phone Care Team Providers Care Sheet Metal Smith Name Role Phone No, Physician Primary Care Provider Hayley Fagan NP Primary Care Provider No, Physician Primary Care Provider [phone] Niko Hook MD Primary Care Provider No, Physician Primary Care Provider [phone] Encounter Details Date Type Department Care Team (Late st Contact Info) Description 10/18/2017 Orders Only [facility] ProviderSameera MD [address] [place] [address] Social History Tobacco Use Types Packs/Day Years Used Date Smoking Tobacco: Never Assessed Comments Unknown Sex and Gender Information Value Date Recorded Sex Assigned at Not on file Legal Sex Female 9:05 AM MACHINE SPLITTER Gender Identity Not on file Sexual Orientation [...] documented as of this encounter Care Teams Sheet Metal Smith Relationship Specialty Start Date End Date No, Physician PCP - General 06/03/17 04/27/18 Hayley Fagan NP PCP - General 04/28/18 12/14/20 No, Physician PCP - General 12/15/20 02/06/21 Niko Hook MD PCP - General Family Medicine 02/07/21 12/22/23 No, Physician PCP - General 12/23/23 documented as of this encounter
--- OUTSIDE RECORDS SUMMARY | 2024-11-02 16:51 | XMS_ITS | Clinical Summary ---
Author Organization [facility] Address [address] [place] [address] Care Team Providers Care Web Content Manager Name Role Phone No, Physician Primary Care Provider [phone] Allergies Active Allergy Reactions Criticality Noted Date [...] on file Legal Sex Female 9:05 AM OTR DRIVER Gender Identity Not on file Sexual Orientation [...] Health Maintenance Due Date Last Done Comments Cervical Cancer Screening 2003 Hepatitis C Screening 2003 Regular Well Visit/Exam 18-64 10/19/2021 Depression Screening 03/29/2022 03/29/2021, 02/08/20 21 Influenza Vaccine (Season Ended) 2025 09/17/2018, 05/07/2017, 04/04/2016, Additional history exists DTaP/Tdap/Td Vaccine [...] Vaccine Completed 04/04/2021, 02/14 Insurance [employer] [facility] [facility] [employer] [facility] BETTER [facility] [employer] Advance Directives For more information, please contact: [phone] Documents on File Type Date Recorded Patient Communication Clerk Expl anation ADVANCE DIRECTIVE 02/07/2021 2:19 PM Care Teams Web Content Manager Relationship Specialty Start Date End Date No, Physician PCP - General 12/23/23
--- OUTSIDE RECORDS SUMMARY | 2024-11-02 16:51 | XMS_ITS | Referral Summary ---
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
--- OUTSIDE RECORDS SUMMARY | 2024-11-02 16:52 | XMS_ITS | Continuity of Care Document ---
Author Organization [facility] Address [address] [place] [phone] Phone Care Team Providers Care Pneumatic Tester Name Role Phone Stanley Faith Unavailable Unavailable Allergies, Adverse Reactions, Alerts Substance Reaction Status Criticality acetic acid Active No Information Procedures Procedure Date PSYTX PT&/FAMILY 30 MINUTES PREV VISIT, NEW, AGE 12-17 Advance Directives Directive Yes / No Effective Date File Name No Information Encounters Encounter Description Practice Location Reason(s) For Visit Diagnoses Date Provider Providers Copied on Encounter [facility], [address] [place] [address], Formerly [facility], tel:[phone] *[facility] No Information 8 Vianney Angel. [address] [place] [address], [address] [place] [address]. tel:[phone] [facility], [address] [place] [address], [address] [place] [address] tel:[phone] *[facility] No Information 8 Raghavendra Rangel. [address] [place] [address], [address] [place] [address]. tel:[phone] PSYTX PT&/FAMILY [address], Formerly [facility], tel:[phone] *[facility] Major depressive disorder, recurrent severe without psychotic features 8 Raghav Marinelli. [address] [place], Formerly [facility], . tel:[phone] PREV VISIT, NEW, AGE 12-17 [facility], [address] [place], [address], [place] tel:[phone] *[facility] Skin lesion (chief complaint) Well Child (chief complaint) Dietary counseling and surveillanceEncntr for routine child health exam w/o abnormal findingsOther depressionErythemaI nsect bite, initial encounter 8 Raghavendra Rangel. [address] [place], [address], [place]. tel:[phone] Family History Family Member Type Diagnosis Age [...] Provider Varicella administered Source: Other P rovider [id number] administered Source: Other P rovider MMR administered [...] er Payers Payer name Insurance type Covered alliance party ID Authoriza tion(s) No Information Social History Type Description Quantity Date Captured Comments Sex Female Smoking Status No Information Chief Complaint And Reason For Visit No Information Reason For Referral Reason For Referral No Information Plan Of Treatment Date Type Action Status Goal Dietary manageme nt education, guidance, and counseling completed Future Order: Lab Order CBC w/AU TO DIFF ([id number]), Sent on: Sent Future Order: Lab Order COMPREHE NSIVE METABOLIC PANEL ([id number]), Sent on: Sent Future Order: Lab Order THYROID STIMULATING HORMONE ([id number]), Sent on: Sent Future Order: Lab Order URINALYS IS W/ MIRCOSCOPIC ([id number]), Sent on: Sent Future Order: Lab Order LIPID PA TOSHIA ([id number]), Sent on: Sent History Of Present Illness [...] response to allergan/irritant. May need referal to lens engraver or diabetes educator if no improvement. Related to Insect bite, initial encounter Continue well child protection specialist. Avoid cigarette smoke in the home and vehicles. Ensure pets have been vaccinated for rabies. Safeguard the home for falls and poisons. Finger foods as tolerated. if rx for tylenol was sent to pharmacy, advised informatics manager to administer tylenol after vaccination and not before because the latest research shows decreased immune response with premedicating with tylenol for vaccination. Related to Encntr for routine child health exam w/o abnormal findings appt with Isis Avilez METAL PRECISION MACHINE ASSEMBLER Relat ed to Other depression patient was advised to exercise at least 30minutes three times a week, to eat a diet high in fiber, low in fat and drink at least 64 ounces of water daily.discussed weight loss goals ie 1 pound per week for total 50+ wt loss in a year. decrease portion size, decrease carbohydrates. download myfitReVerapal to smart phone and log foods. start [...]
--- OUTSIDE RECORDS SUMMARY | 2024-11-02 16:52 | XMS_ITS | Clinical Summary ---
Author Organization [facility] Address [address] [place] [address] Phone Care Team Providers Care Member Certification Manager Name Role Phone Provider, None Primary Care [...] Sex Assigned at Female 06/22/2023 1:24 AM OPERATING TABLE ASSEMBLER Legal Sex Female 11:58 PM CDT Gender Identity Female 06/22/2023 1:24 AM OPERATING TABLE ASSEMBLER Sexual Orientation Not on file Last Filed Vital Signs Vital Sign Reading Time Taken Comments Blood Pressure 116/71 06/22/2023 2:15 AM OPERATING TABLE ASSEMBLER Pulse 81 06/22/2023 2:20 AM OPERATING TABLE ASSEMBLER Temperature 36.2 C (97.2 F) 06/22/2023 1:13 AM OPERATING TABLE ASSEMBLER Respiratory Rate 16 06/22/2023 1:13 AM OPERATING TABLE ASSEMBLER Oxygen Saturation 100% 06/22/2023 2:20 AM OPERATING TABLE ASSEMBLER Inhaled Oxygen Concentration - - Weight 80.7 kg (178 lb) 06/22/2023 1:13 AM OPERATING TABLE ASSEMBLER Height 157.5 cm (5' 2 ) 06/22/2023 1:13 AM OPERATING TABLE ASSEMBLER Body Mass Index 32.56 06/22/2023 1:13 AM OPERATING TABLE ASSEMBLER Plan of Treatment Not on file Insurance MEDICAID AETNA [facility] Care Teams Member Certification Manager Relationship Specialty Start Date End Date Provider, None [place] PCP - General 06/22/23
== END 2024-11-02 15:58 | disposition home or self-care (01) ==
PROVIDERS: Emergency Provider Nurse Practitioner Family
DX: J06.9 Acute upper respiratory infection, unspecified (principal); F12.90 Cannabis use, unspecified, uncomplicated; Z20.822 Contact with and (suspected) exposure to COVID-19; F98.8 Other specified behavioral and emotional disorders with onset usually occurring in childhood and adolescence; F17.290 Nicotine dependence, other tobacco product, uncomplicated
CPT/HCPCS: 87081; 87426; 87804; 87880; 99213; G0463

== ENCOUNTER 2025-03-25 13:06 | Emergency (ER) | payer SELFPAY ==
--- OUTSIDE RECORDS SUMMARY | 2018-05-26 08:25 | XMS_ITS | Continuity of Care Document ---
Author Organization [facility] Address [address] [place] [address] Phone Care Team Providers Care Security Sme Name Role Phone Stanley Faith Unavailable Unavailable Allergies, Adverse Reactions, Alerts Substance Reaction Status Criticality acetic acid Active No Information Procedures Procedure Date PSYTX PT&/FAMILY 30 MINUTES PREV VISIT, NEW, AGE 12-17 Advance Directives Directive Yes / No Effective Date File Name No Information Encounters Encounter Description Practice Location Reason(s) For Visit Diagnoses Date Provider Providers Copied on Encounter [facility], [address] [place] [address], [facility], tel:[phone] *[facility] No Information 8 Vianney Angel. [address] [place] [address], [address] [place] [address]. tel:[phone] [facility], [address] [place] [address], [address] [place] [address] tel:[phone] *[facility] No Information 8 Raghavendra Rangel. [address] [place] [address], [address] [place] [address]. tel:[phone] PSYTX PT&/FAMILY [address], [facility], tel:[phone] *[facility] Major depressive disorder, recurrent severe without psychotic features 8 Raghav Marinelli. [address] [place], [facility], . tel:[phone] PREV VISIT, NEW, AGE 12-17 [facility], [address] [place], [address], [place] tel:[phone] *[facility] Skin lesion (chief complaint) Well Child (chief complaint) Dietary counseling and surveillanceEncntr for routine child health exam w/o abnormal findingsOther depressionErythemaI nsect bite, initial encounter 8 Raghavendra Rangel. [address] [place], [address], [place]. tel:[phone] Family History Family Member Type Diagnosis Age At Onset Mother Problem (finding) Alive and well Mother Problem (finding) hypertension Mother Problem (finding) Arthritis Father Problem (finding) depression Father Problem (finding) Alive and well Immunizations Vaccine Date Status Comments HPV (9-valent) administered Source: Other Provider HPV, quadrivalent administered Source: Ot her Provider Tdap administered Source: Other P rovider meningococcal MCV4P administered Source: Other Provider HPV, unspecified formulation administered Source: Other Provider Varicella administered Source: Other P rovider [id number] administered Source: Other P rovider MMR administered Source: Other P rovider Hep A (ped/adol, 2 dose) administered Kaia rce: Other Provider Hepatitis A administered Source: Other P rovider IPOL administered Source: Other P rovider MMR administered Source: Other P rovider Pneumococcal conjugate PCV 7 administered Source: Other Provider VARIVAX administered Source: Other P rovider Pneumococcal conjugate PCV 7 administered Source: Other Provider IPOL administered Source: Other P rovider HEP B administered Source: Other P rovider Pneumococcal conjugate PCV 7 administered Source: Other Provider IPOL administered Source: Other P rovider Pneumococcal conjugate PCV 7 administered Source: Other Provider IPOL administered Source: Other P rovider HEP B administered Source: Other P rononader Hep B, adolescent or pediatr ic, 3 dose administered Source: Other Provid er Payers Payer name Insurance type Covered green party ID Authoriza tion(s) No Information Social History Type Description Quantity Date Captured Comments Sex Female Smoking Status No Information Chief Complaint And Reason For Visit No Information Reason For Referral Reason For Referral No Information Plan Of Treatment Date Type Action Status Goal Dietary manageme nt education, guidance, and counseling completed Future Order: Lab Order CBC w/AU TO DIFF ([id number]), Sent on: Sent Future Order: Lab Order COMPREHE NSIVE METABOLIC PANEL ([id number]), Sent on: Sent Future Order: Lab Order THYROID STIMULATING HORMONE ([id number]), Sent on: Sent Future Order: Lab Order URINALYS IS W/ MIRCOSCOPIC ([id number]), Sent on: Sent Future Order: Lab Order LIPID PA TOSHIA ([id number]), Sent on: Sent History Of Present Illness Encounter Date Complaint History Of Prese nt Illness Skin lesion The patient pres ents with Skin lesion that began 1 day ago. The problem is mild, has not changed and occurs continuously. Area(s) of concern include the right posterior arm. The lesion(s) of concern is described as red color. Aggravating factors include clothing, movement and heat. The patient does not report any relieving factors. Associated symptoms include erythema, fatigue, itchy skin and painful lesions. The patient reports no blistering, change in color of mole(s), change in size and shape of the mole(s), lesion discharge, lymphadenopathy, non-healing sores, pigment change, recurrent bleeding lesions, scaly skin or skin irritation. Well Child Functional Status Date Functional Assessmen t No Information Instructions Date Instruction Additional Infor mation Instructions were gi sera to avoid triggers which can included, dust mites, irritants, detergants, fabric softeners, pets. Keep skin well hydrated by drinking lots of fluids, not taking hot showers that strip the skins natural oils and moisture away. Use gentle lotions and soaps that are non scented, like Cetaphil Cleansing bar and lotion after every shower and use skin barriers like Theraseal to avoid irritants. It is also important to watch for secondary skin infection, warmth, redness or purulant drainage. Keep nails cut short and clean to avoid skin damage due to itching and secondary infection. Take antihistamine to block bodies response to allergan/irritant. May need referal to internal combustion engine inspector or fleet maintenance foreman if no improvement. Related to Insect bite, initial encounter Continue well child welfare specialist. Avoid cigarette smoke in the home and vehicles. Ensure pets have been vaccinated for rabies. Safeguard the home for falls and poisons. Finger foods as tolerated. if rx for tylenol was sent to pharmacy, advised can reforming machine operator to administer tylenol after vaccination and not before because the latest research shows decreased immune response with premedicating with tylenol for vaccination. Related to Encntr for routine child health exam w/o abnormal findings patient was advised to exercise at least 30minutes three times a week, to eat a diet high in fiber, low in fat and drink at least 64 ounces of water daily.discussed weight loss goals ie 1 pound per week for total 50+ wt loss in a year. decrease portion size, decrease carbohydrates. download [employer] to smart phone and log foods. start by decreasing caloric intake by 10% for the first month and gradually decrease. Do not go below 1200 calories per day. Related to Dietary counseling and surveillance appt with Isis Avilez PSYCHOLOGY ASSOCIATE Relat ed to Other depression Dietary management e ducation, guidance, and counseling Related to Dietary counseling and surveillance Assessments Type Assessment Date No Information Patient Care Teams Name Effective Dates (start - stop) Status Members No Information
--- OUTSIDE RECORDS SUMMARY | 2018-05-26 08:25 | XMS_ITS | Continuity of Care Document ---
Author Organization [facility] Address [address] [place] [address] Phone Care Team Providers Care Cross Tie Turner Name Role Phone Stanley Faith Unavailable Unavailable Allergies, Adverse Reactions, Alerts Substance Reaction Status Criticality acetic acid Active No Information Procedures Procedure Date PSYTX PT&/FAMILY 30 MINUTES PREV VISIT, NEW, AGE 12-17 Advance Directives Directive Yes / No Effective Date File Name No Information Encounters Encounter Description Practice Location Reason(s) For Visit Diagnoses Date Provider Providers Copied on Encounter [facility], [address] [place] [address], [facility], tel:[phone] *[facility] No Information 8 Vianney Angel. [address] [place] [address], [address] [place] [address]. tel:[phone] [facility], [address] [place] [address], [address] [place] [address] tel:[phone] *[facility] [place] No Information 8 Raghavendra Rangel. [address] [place] [address], [address] [place] [address]. tel:[phone] PSYTX PT&/FAMILY [address], [facility], tel:[phone] *[facility] [place] Major depressive disorder, recurrent severe without psychotic features 8 Raghav Marinelli. [address] [place], [facility], . tel:[phone] PREV VISIT, NEW, AGE 12-17 [facility], [address] [place], [address], [place] tel:[phone] *[facility] [place] [place] Skin lesion (chief complaint) Well Child (chief complaint) Dietary counseling and surveillanceEncntr for routine child health exam w/o abnormal findingsOther depressionErythemaI nsect bite, initial encounter 8 Raghavendra Rangel. [address] [place], [address], [place]. tel:[phone] Family History Family Member Type Diagnosis Age [...] Provider Varicella administered Source: Other P rovider [id number] administered Source: Other P rovider MMR administered [...] er Payers Payer name Insurance type Covered libertarian ID Authoriza tion(s) No Information Social History Type Description Quantity Date Captured Comments Sex Female Smoking Status No Information Chief Complaint And Reason For Visit No Information Reason For Referral Reason For Referral No Information Plan Of Treatment Date Type Action Status Goal Dietary manageme nt education, guidance, and counseling completed Future Order: Lab Order CBC w/AU TO DIFF ([id number]), Sent on: Sent Future Order: Lab Order COMPREHE NSIVE METABOLIC PANEL ([id number]), Sent on: Sent Future Order: Lab Order THYROID STIMULATING HORMONE ([id number]), Sent on: Sent Future Order: Lab Order URINALYS IS W/ MIRCOSCOPIC ([id number]), Sent on: Sent Future Order: Lab Order LIPID PA TOSHIA ([id number]), Sent on: Sent History Of Present Illness [...] response to allergan/irritant. May need referal to tailor fitter or straw hat brim cutter operator if no improvement. Related to Insect bite, initial encounter Continue well child development specialist. Avoid cigarette smoke in the home and vehicles. Ensure pets have been vaccinated for rabies. Safeguard the home for falls and poisons. Finger foods as tolerated. if rx for tylenol was sent to pharmacy, advised color maker to administer tylenol after vaccination and not before because the latest research shows decreased immune response with premedicating with tylenol for vaccination. Related to Encntr for routine child health exam w/o abnormal findings appt with Isis Avilez HEALTH SAFETY ENGINEER Relat ed to Other depression patient was advised to exercise at least 30minutes three times a week, to eat a diet high in fiber, low in fat and drink at least 64 ounces of water daily.discussed weight loss goals ie 1 pound per week for total 50+ wt loss in a year. decrease portion size, decrease carbohydrates. download [email or web address] to smart phone and log foods. start by decreasing caloric intake by 10% for the first month and gradually decrease. Do not go below 1200 calories per day. Related to Dietary counseling and surveillance Dietary management e ducation, guidance, and counseling Related to Dietary counseling and surveillance Assessments Type Assessment Date No Information Patient Care Teams Name Effective Dates (start - stop) Status Members No Information
[2025-03-25 13:15] VITALS: BP 116/65; PULSE 110; RESP 18; TEMP 36.9; O2SAT 99
--- OUTSIDE RECORDS SUMMARY | 2025-03-25 13:16 | XMS_ITS | Clinical Summary ---
Author Organization [facility] Address [address] [place] [address] Phone Care Team Providers Care Hide Washer Name Role Phone Provider, None Primary Care [...] Sex Assigned at Female 06/22/2023 1:24 AM CARBON CLEANER Legal Sex Female 11:58 PM CDT Gender Identity Female 06/22/2023 1:24 AM CARBON CLEANER Sexual Orientation Not on file Last Filed Vital Signs Vital Sign Reading Time Taken Comments Blood Pressure 116/71 06/22/2023 2:15 AM CARBON CLEANER Pulse 81 06/22/2023 2:20 AM CARBON CLEANER Temperature 36.2 C (97.2 F) 06/22/2023 1:13 AM CARBON CLEANER Respiratory Rate 16 06/22/2023 1:13 AM CARBON CLEANER Oxygen Saturation 100% 06/22/2023 2:20 AM CARBON CLEANER Inhaled Oxygen Concentration - - Weight 80.7 kg (178 lb) 06/22/2023 1:13 AM CARBON CLEANER Height 157.5 cm (5' 2) 06/22/2023 1:13 AM CARBON CLEANER Body Mass Index 32.56 06/22/2023 1:13 AM CARBON CLEANER Plan of Treatment Not on file Insurance MEDICAID AETNA [facility] Care Teams Hide Washer Relationship Specialty Start Date End Date Provider, None [place] PCP - General 06/22/23
--- OUTSIDE RECORDS SUMMARY | 2025-03-25 13:16 | XMS_ITS | Clinical Summary ---
Author Organization [facility] Address [address] [place] [address] Care Team Providers Care Burner Tender Name Role Phone No, Physician Primary Care Provider [phone] Allergies Active Allergy Reactions Criticality Noted Date Comments Cider Vinegar Swelling Medium 11/22/2022 Medications escitalopram (LEXAPRO) 10 mg tablet Take 1 tablet (10 mg total) by mouth nightly 3 Active naproxen (NAPROSYN) 500 mg tabletIndicatio ns:Sprain of anterior talofibular ligament of left ankle, initial encounter Take 1 tablet (500 mg total) by mouth 2 (two) times a day as needed for pain P.r.n. pain and swelling. Take with food. Collaborating physician Yoan Garrett MD 20 tablet 5 Active traMADoL (ULTRAM) 50 mg tabletIndicatio ns:Sprain of anterior talofibular ligament of left ankle, initial encounter Take 1 tablet (50 mg total) by mouth every 8 (eight) hours as needed for pain P.r.n. pain not relieved by naproxen alone. Take with food. Collaborating physician Yoan Garrett MD 15 tablet 5 Active Active Problems Problem Noted Date Diagnosed Date Sprain of anterior talofibular ligament of left ankle 02/16/2025 Acute anterior epistaxis 10/27/2021 Anxiety 04/03/2021 Assessment & Plan (04/03/2021 9:37 AM CDT): Trial of Atarax (hydroxyzine), antihistamine to have in case anxiety/panic attacks are not controllable with usual measures Make sure to get back into regular follow-up with a counselor soon as possible Plan to see back in 2-3 months to see how things are going again Hx of epistaxis 02/12/2021 Encounters Date Type Department Care Team Description 02/16/2025 12:40 PM CDT - 02/16/2025 1:43 PM CDT Emergency [facility] Emergency Department [address] [place] [address] Sprain of anterior talofibular ligament of left ankle, initial encounter (Primary Dx) Discharge Disposition: Discharge to home or self care from Last 3 Months Immunizations Immunization Administration Dates Next Due DTaP [...] making you feel afraid or unsafe? Denies 02/16/2025 Comments No Sex and Gender Information Value Date Recorded Sex Assigned at Not on file Legal Sex Female 9:05 AM SEED ANALYST Gender Identity Not on file Sexual Orientation Not on file Obstetrics History Last Filed Vital Signs Vital Sign Reading Time Taken Comments Blood Pressure 120/69 02/16/2025 11:30 AM CDT Pulse 103 02/16/2025 11:30 AM CDT Temperature 37.4 C (99.4 F) 02/16/2025 11:30 AM CDT Respiratory Rate 16 02/16/2025 11:30 AM CDT Oxygen Saturation 98% 02/16/2025 11:30 AM CDT Inhaled Oxygen Concentration - - Weight 77.1 kg (170 lb) 02/16/2025 11:30 AM CDT Height 165.1 cm (5' 5) 02/16/2025 11:30 AM CDT Body Mass Index 28.29 02/16/2025 11:30 AM CDT Plan of Treatment Health Maintenance Due Date Last Done Comments Cervical Cancer Screening 2003 Hepatitis C Screening 2003 Regular Well Visit/Exam 18-64 10/19/2021 Depression Screening 03/29/2022 03/29/2021, 02/08/20 21 Influenza Vaccine (#1) 2025 9, 05/07/2017, 04/04/2016, Additional history exists DTaP/Tdap/Td [...] 03/25/2015 Meningococcal B Vaccine Completed 04/04/2021, 02/14 Procedures Procedure Name Priority Date/Time Associated Diagnosis Comments XR ANKLE LEFT 3 OR MORE VIEWS ED 02/16/2025 11:39 AM CDT from Last 3 Months Results * XR Ankle Left 3 or More Views (02/16/2025 11:39 AM CDT) Anatomical Region Laterality Modality Lower Extremities, Ankle Left Compute d Radiography 02/16/2025 11:5 9 AM CDT Narrative 02/16/2025 12:00 PM CDT EXAM DESCRIPTION: XR ANKLE LEFT 3 OR MORE VIEWS REASON FOR STUDY: pain Rolled ankle 5 days ago TECHNIQUE: 3 radiographic view(s) of the left ankle . COMPARISON: None FINDINGS: There is no definite evidence of acute displaced fracture or dislocation involving the left ankle. The ankle mortise alignment is grossly well maintained. There is mild soft tissue swelling. IMPRESSION: 1. Mild soft tissue swelling involving the left ankle without definite evidence of acute displaced fracture or dislocation. THIS IS AN ELECTRONICALLY VERIFIED FINAL REPORT 02/16/2025 12:00 PM - Electronically signed by Michelle Urrutia D.O. PS: JUSTYN Report ID: [id number] Reading Location: [id number] Procedure Note Michelle Urrutia, DO - 02/16/2025 EXAM DESCRIPTION: XR ANKLE LEFT 3 OR MORE VIEWS REASON FOR STUDY: pain Rolled ankle 5 days ago TECHNIQUE: 3 radiographic view(s) of the left ankle . COMPARISON: None FINDINGS: There is no definite evidence of acute displaced fracture or dislocation involving the left ankle. The ankle mortise alignment is grossly well maintained. There is mild soft tissue swelling. IMPRESSION: 1. Mild soft tissue swelling involving the left ankle without definite evidence of acute displaced fracture or dislocation. THIS IS AN ELECTRONICALLY VERIFIED FINAL REPORT 02/16/2025 12:00 PM - Electronically signed by Michelle Urrutia D.O. 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
--- OUTSIDE RECORDS SUMMARY | 2025-03-25 13:16 | XMS_ITS | Encounter Summary ---
Author Organization [facility] Address [address] [place] [address] Phone Care Team Providers Care Test Consultant Name Role Phone No, Physician Primary Care Provider [phone] Hayley Fagan NP Primary Care Provider No, Physician Primary Care Provider [phone] Niko Hook MD Primary Care Provider No, Physician Primary Care Provider Encounter Details Date Type Department Care Team (Late st Contact Info) Description 10/18/2017 Orders Only [facility] ProviderSameera MD [address] [place] [id number] Social History Tobacco Use Types Packs/Day Years Used Date Smoking Tobacco: Never Assessed Comments Unknown Sex and Gender Information Value Date Recorded Sex Assigned at Not on file Legal Sex Female 9:05 AM HUMAN RESOURCES INTERN Gender Identity Not on file Sexual Orientation [...] documented as of this encounter Care Teams Test Consultant Relationship Specialty Start Date End Date No, Physician PCP - General 06/03/17 04/27/18 Hayley Fagan NP PCP - General 04/28/18 12/14/20 No, Physician PCP - General 12/15/20 02/06/21 Niko Hook MD PCP - General Family Medicine 02/07/21 12/22/23 No, Physician PCP - General 12/23/23 documented as of this encounter
--- NOTE | 2025-03-25 13:24 | ED_ITS ---
HPI - URI/Sore Throat General Chief Complaint: Upper Respiratory Infection Stated Complaint: Nasal Congestion/Fever/Cough Time Seen by Provider: 03/25/25 13:41 Source: patient, RN notes reviewed and old records reviewed Mode of arrival: ambulatory Limitations: no limitations History of Present Illness HPI Narrative: 19-year-old female presents to the [facility] with complaints of nasal congestion, feeling feverish, headache, sore throat for 2 days. Has taken DayQuil. Reports also taking ibuprofen Related Data Allergies Allergy/AdvReac Type Severity Reaction Status Date / Time No Known Allergies Allergy Verified 11/02/24 15:23 Review of Systems Review of Systems: All systems reviewed & are unremarkable except as noted in HPI and below Constitutional: Constitutional: Reports no additional constitutional compl aints ENT: Reports as per HPI, Reports nasal discharge, Reports sinus pain and Reports sore throat Cardiovascular: Cardiovascular: Reports no additional cardiovascular complaints, Denies chest pain and Denies dyspnea Respiratory: Respiratory: Reports as per HPI, Denies chest congestion, Reports cough and Denies dyspnea Musculoskeletal: Musculoskeletal: Reports no additional musculoskeletal complaints Integumentary/Breasts: Skin/Breast: Reports system reviewed and no additional complaints, except as docu PMFSH Past Medical History Medical History Ear infection Strep throat ADD (attention deficit disorder) Surgical History Surgical History History of tonsillectomy Family History Family History Mother Family history non-contributory Social History Social History Smoking status: Current every day smoker Tobacco type: e-cigarettes/vaping Substance use: current Substance use type: marijuana Gender identity (if verbalized by the patient): Female Sexual Orientation (if Verbalized by the Patient): Straight or Heterosexual Spiritual care concerns: No Comments At the time of my signature, I reviewed and agree with the nursing past medical, surgical, social, and family history. There is no relevant family history pertinent to the patient complaint. Exam Const: General: cooperative, healthy appearing, comfortable, no acute distress, well developed, alert and well nourished Nutritional Appearance: well nourished Orientation/consciousness: patient oriented x3 Limitations: no limitations HENMT: Head: normal to inspection Ears: hearing grossly normal bilaterally, external ears normal, TM's normal bilaterally, EAC's normal, mastoids normal and no periauricular adenopathy Face/Nose/Sinus: Normal external nose present, Nasal discharge present clear and face symmetric Face and sinus: normal facial exam, sinuses nontender and face symmetric Mouth: Yes Normal oral and palatal mucosa present, Yes lip normal, Yes tongue normal and Yes moist mucous membranes Throat: posterior oropharynx normal, uvula midline, postnasal drainage and no uvular edema Eyes: General: appearance normal, both eyes and all related structures Alignment and Position: alignment normal Neck: Neck: normal visual inspection, full ROM, no lymphadenopathy and no meningeal signs Chest: Chest palpation & inspection: normal inspection of the chest Resp: Effort & Inspection: normal respiratory effort and able to speak in complete sentences Auscultation: clear to auscultation bilaterally, no crackles, no rales, no rhonchi and no wheezes Cardio: Rate: regular rate Skin: General skin exam: normal color and no rashes or lesions noted Neuro: General: patient oriented x3, gait normal, moves all extremities and no meningeal signs Cognition (Neuro): normal cognition Speech: normal speech Gait exam (Neuro): Normal gait present Extrem: General: normal to inspection, full ROM, capillary refill normal and normal gait Psych: Appearance: grossly normal and well kempt Mental Status: mental status grossly normal Speech and movement: Normal speech and movement present and Clear speech present Affect: normal affect Attitude: cooperative Course Course Level of Care: Express Care Visit Vital Signs Vital signs: Vital Signs Temperature 98.5 F 03/25/25 13:15 Pulse Rate 110 H 03/25/25 13:15 Respiratory Rate 18 03/25/25 13:15 Blood Pressure 116/65 03/25/25 13:15 Pulse Oximetry 99 03/25/25 13:15 Oxygen Delivery Room Air 03/25/25 13:15 Temperature 98.5 F 03/25/25 13:15 Pulse Rate 110 H 03/25/25 13:15 Respiratory Rate 18 03/25/25 13:15 Blood Pressure 116/65 03/25/25 13:15 Pulse Oximetry 99 03/25/25 13:15 Oxygen Delivery Room Air 03/25/25 13:15 Reviewed MDM - URI/Sore Throat MDM Narrative Medical decision making narrative: Patient sitting in exam room. Patient is nontoxic, vitals stable. Patient with 2 day history of URI symptoms, flu COVID strep were all negative, will culture for strep. No acute findings other than postnasal drainage noted. Patient appropriate for outpatient treatment with close follow-up Discharge instructions reviewed with patient, as well as provided in writing per nursing staff. The instructions also include specific and strict return/GO TO THE ER as well as f/u information. All questions have been answered, and the patient deny any further questions with discharge and discharge plan. Some parts of this dictation were generated by voice recognition software and may contain typographical and/or grammatical inaccuracies. Differential Diagnosis Differential diagnosis: Likely upper respiratory infection, otitis media, sinusitis, viral infection, bronchitis, influenza and pharyngitis Lab Data Labs: Lab Results 03/25/25 Range/Units 13:32 POC Influenza A Ag Negative (Negative) POC Influenza B Ag Negative (Negative) POC SARS CoV-2 Ag Negative (Negative) POC Grp A Strep Screen Negative (Negative) Reviewed Critical Care Time Critical Care Time Critical Care Time: No Discharge Plan Discharge Clinical Impression: Upper respiratory infection Patient Disposition: Home Condition: Stable Instructions: Antibiotic Form, Upper Respiratory Infection (ED), Viral Syndrome (ED) Additional Instructions: Your rapid strep swab was negative today at [facility]. A throat culture will be sent to the laboratory for further testing. If the test is positive, you will receive a phone call within 48 hours and an appropriate antibiotic will be initiated at that time. Your rapid COVID test were negative Your rapid flu test was negative Your symptoms are likely due to a viral illness, which is not treated with antibiotics. Typically viral infections last 7-10 days, can linger for couple of weeks. It is very important to treat your symptoms. Drink plenty of water, Gatorade, Pedialyte, ice pops or Jell-O. -Alternate Tylenol and Motrin per package directions for fever or pain. You can alternate every 4 hours -Antihistamine medication such as Zyrtec/Claritin/Sharonda during the day can help improve symptoms. -doing daily nasal irrigations can help relieve pressure your sinuses. Things like a Neti pot -Use Flonase twice a day for 5 days then daily to help reduce the inflammation and dry up your sinuses. -You can also use Mucinex. Be sure to drink plenty of water with this medication at least 8 ounces with every dose and it is important to drink 8 to 10 glasses of water per day. Water is a natural decongestant -Eat and drink things that are easy to swallow, like tea or soup, or popsicles. -Oral rinses such as: Salt water gargles and/or may use topical anesthetic (eg. Chloraseptic spray) or lozenges to relieve dryness or throat pain). -Frequent hand washing or hand ar manager is one of the best ways to prevent spread of infection. -Using a vaporizer or humidifier at night will also help thin secretions and help with coughing up phlegm. -Follow up with primary care provider in 7-10 days if condition is not improving - For new or worsening symptoms go directly to the nearest ER Patient Language: Albanian Follow-up/Referrals: PHYSICIAN,GLASSBLOWER [Primary Care Provider, Internal Medicine] Stand Alone Forms: Work/School Release IP Time of Disposition: 13:59
[2025-03-25 13:38] LABS: EDCOVIDSCREEN Negative (Negative); EDINFLUASCREEN Negative (Negative); EDINFLUBSCREEN Negative (Negative); EDSTREPNEGPOS1 Negative (Negative)
== END 2025-03-25 14:05 | disposition home or self-care (01) ==
PROVIDERS: Emergency Provider Nurse Practitioner
DX: J06.9 Acute upper respiratory infection, unspecified (principal); F17.290 Nicotine dependence, other tobacco product, uncomplicated; Z20.822 Contact with and (suspected) exposure to COVID-19
CPT/HCPCS: 87081; 87426; 87804; 87880; 99213; G0463